=== PATIENT | female | born 1980 | race Caucasian/White ===

== ENCOUNTER 2020-02-12 16:51 | Emergency (ER) | payer OTHER ==
[~2020-02-12] VITALS: Ht 167.6 cm; Wt 79.4 kg
== END 2020-02-12 19:39 | disposition home or self-care (01) ==
LOC: ER 16:51
DX: R60.0 Localized edema (principal); T39.015A Adverse effect of aspirin, initial encounter; Y92.89 Other specified places as the place of occurrence of the external cause